=== PATIENT | female | born 1990 | race Caucasian/White ===

== ENCOUNTER 2019-08-21 14:33 | Emergency (ER) | payer SELFPAY ==
[2019-08-21] MEDS ORDERED: Sodium Chloride 0.9% 1,000 ML IV ONE (14:44)
[2019-08-21] MEDS ORDERED: Ondansetron 4 MG/2 ML SDV IVPUSH ONE (14:44)
[2019-08-21] MEDS ORDERED: Morphine 4 MG/ML Syringe IVPUSH ONE (14:44)
--- NOTE | 2019-08-21 14:50 | EDM.PDOC ---
ED HPI GENERAL MEDICAL PROBLEM - General Chief Complaint: Abdominal Pain Stated Complaint: ABDOMINAL PAIN/POSSIBLE APPENDIX Time Seen by Provider: 08/21/19 14:45 Source of Information: Reports: Patient History Limitations: Reports: No Limitations - History of Present Illness INITIAL COMMENTS - FREE TEXT/NARRATIVE: This 29-year-old female presents the emergency room with right lower quadrant pain that started last night. Patient states that yesterday she was seen at [facility] and had a diagnosis of cholecystitis. Patient states that this evening she started having right lower quadrant pain. Patient called her primary Care physician and was told to come here because patient will have CAT scan available for imaging. Patient denies any urinary symptoms, fever chills. Patient does states she is vomited 3 times. Patient does not believe she is she had a negative test last night and has had her tubes tied. Duration: Hour(s): (6), Getting Worse Location: Reports: Abdomen Quality: Reports: Ache Severity: Moderate (7 out of 10 pain) Worsens with: Reports: None Associated Symptoms: Reports: No Other Symptoms, Nausea/Vomiting right lower abdominal pain Pain Score (Numeric/FACES): 7 - Related Data Allergies Allergy/AdvReac Type Severity Reaction Status Date / Time No Known Allergies Allergy Verified 08/21/19 14:43 Home Meds: Home Meds buPROPion [Wellbutrin] 08/21/19 [History] Past Medical History HEENT History: Reports: Impaired Vision Cardiovascular History: Reports: Hypertension Other Gastrointestinal History: hx: Heartburn/GERD even when not 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, 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 - Past Surgical History Female Surgical History: Reports: Section Social & Family History - Family History Respiratory: Reports: Asthma Musculoskeletal: Reports: Arthritis Neurological: Reports: Dementia Psychiatric: Reports: ADHD, Depression Endocrine/Metabolic: Reports: Diabetes, Type I, Diabetes, type II Oncologic: Reports: Uterine ED ROS GENERAL - Review of Systems Review Of Systems: See Below Constitutional: Reports: No Symptoms HEENT: Reports: No Symptoms Respiratory: Reports: No Symptoms Cardiovascular: Reports: No Symptoms Endocrine: Reports: No Symptoms GI/Abdominal: Reports: Abdominal Pain, Nausea, Vomiting : Reports: No Symptoms Musculoskeletal: Reports: No Symptoms Skin: Reports: No Symptoms Neurological: Reports: No Symptoms Psychiatric: Reports: No Symptoms Hematologic/Lymphatic: Reports: No Symptoms Immunologic: Reports: No Symptoms ED EXAM, GI/ABD - Physical Exam Exam: See Below Exam Limited By: No Limitations General Appearance: Alert, WD/WN, Moderate Distress Eyes: Bilateral: Normal Appearance Ears: Normal External Exam, Normal Canal, Hearing Grossly Normal, Normal TMs Throat/Mouth: Normal Inspection, Normal Lips Head: Atraumatic, Normocephalic Neck: Normal Inspection, Supple, Non-Tender, Full Range of Motion Respiratory/Chest: No Respiratory Distress, Lungs Clear, Normal Breath Sounds, No Accessory Muscle Use, Chest Non-Tender Cardiovascular: Normal Peripheral Pulses, Regular Rate, Rhythm, No Edema, No Gallop, No JVD, No Murmur, No Rub GI/Abdominal Exam: Normal Bowel Sounds, No Distention, Abnormal Bowel Sounds Rectal (Female) Exam: Deferred Back Exam: Normal Inspection, Full Range of Motion Extremities: Normal Inspection, Normal Range of Motion Neurological: Alert, Oriented, CN II-XII Intact, Normal Cognition, Normal Gait, Normal Reflexes, No Motor/Sensory Deficits Psychiatric: Normal Affect, Normal Mood Skin Exam: Warm, Dry, Intact, Normal Color, No Rash Lymphatic: No Adenopathy Course - Vital Signs Text/Narrative:: 29-year-old female presents the emergency room right lower quadrant pain sent in by her primary care physician for possible appendicitis. Is on ultrasound a 10 x 7 x 13 cm large cystic structure coming out of the pelvis on the right side. I discussed the case with Dr. Patel patient is to call [facility] clinic tomorrow for urgent clinical appointment. Last Recorded V/S: Last Vital Signs Temp 97.9 F 08/21/19 14:40 Pulse 73 08/21/19 16:03 Resp 16 08/21/19 16:03 BP 129/66 08/21/19 16:03 Pulse Ox 98 08/21/19 16:03 - Orders/Labs/Meds Orders: Active Orders 24 hr Category Date Time Status CULTURE URINE [RM] Stat Lab 08/21/19 14:47 Received Labs: Laboratory Tests 08/21/19 08/21/19 08/21/19 Range/Units 14:46 14:46 14:47 WBC 13.29 H (4.0-11.0) K/uL RBC 4.83 (4.30-5.90) M/uL Hgb 13.2 (12.0-16.0) g/dL Hct 40.2 (36.0-46.0) % MCV 83.2 (80.0-98.0) fL MCH 27.3 (27.0-32.0) pg MCHC 32.8 (31.0-37.0) g/dL RDW Std Deviation 40.5 (28.0-62.0) fl RDW Coeff of Jasmin 13 (11.0-15.0) % Plt Count 402 H (150-400) K/uL MPV 9.50 (7.40-12.00) fL Neut % (Auto) 55.0 (48.0-80.0) % Lymph % (Auto) 35.4 (16.0-40.0) % [place] % (Auto) 7.8 (0.0-15.0) % Eos % (Auto) 1.6 (0.0-7.0) % Baso % (Auto) 0.2 (0.0-1.5) % Neut # (Auto) 7.3 H (1.4-5.7) K/uL Lymph # (Auto) 4.7 H (0.6-2.4) K/uL [place] # (Auto) 1.0 H (0.0-0.8) K/uL Eos # (Auto) 0.2 (0.0-0.7) K/uL Baso # (Auto) 0.0 (0.0-0.1) K/uL Nucleated RBC % 0.0 /100WBC Nucleated RBCs # 0 K/uL Sodium 138 (136-145) mmol/L Potassium 3.8 (3.5-5.1) mmol/L Chloride 100 (98-107) mmol/L Carbon Dioxide 27.9 (21.0-32.0) mmol/L BUN 15 (7.0-18.0) mg/dL Creatinine 0.7 (0.6-1.0) mg/dL Est Cr Clr Drug Dosing 112.01 mL/min Estimated GFR (MDRD) > 60.0 ml/min Glucose 79 (74-106) mg/dL Calcium 9.1 (8.5-10.1) mg/dL Total Bilirubin 0.5 (0.2-1.0) mg/dL AST 17 (15-37) IU/L ALT 29 (14-63) IU/L Alkaline Phosphatase 101 (46-116) U/L Total Protein 7.9 (6.4-8.2) g/dL Albumin 3.9 (3.4-5.0) g/dL Globulin 4.0 (2.6-4.0) g/dL Albumin/Globulin Ratio 1.0 (0.9-1.6) Urine Color Urine Appearance Urine pH (5.0-8.0) Ur Specific [place] (1.001-1.035) Urine Protein (NEGATIVE) mg/dL Urine Glucose (UA) (NEGATIVE) mg/dL Urine Ketones (NEGATIVE) mg/dL Urine Occult Blood (NEGATIVE) Urine Nitrite (NEGATIVE) Urine Bilirubin (NEGATIVE) Urine Urobilinogen (<2.0) EU/dL Ur Leukocyte Esterase (NEGATIVE) Urine RBC (0-2/HPF) Urine WBC (0-5/HPF) Ur Epithelial Cells (NONE-FEW) Urine Bacteria (NEGATIVE) Urine HCG, Qual NEGATIVE (NEGATIVE) 08/21/19 Range/Units 14:47 WBC (4.0-11.0) K/uL RBC (4.30-5.90) M/uL Hgb (12.0-16.0) g/dL Hct (36.0-46.0) % MCV (80.0-98.0) fL MCH (27.0-32.0) pg MCHC (31.0-37.0) g/dL RDW Std Deviation (28.0-62.0) fl RDW Coeff of Jasmin (11.0-15.0) % Plt Count (150-400) K/uL MPV (7.40-12.00) fL Neut % (Auto) (48.0-80.0) % Lymph % (Auto) (16.0-40.0) % [place] % (Auto) (0.0-15.0) % Eos % (Auto) (0.0-7.0) % Baso % (Auto) (0.0-1.5) % Neut # (Auto) (1.4-5.7) K/uL Lymph # (Auto) (0.6-2.4) K/uL [place] # (Auto) (0.0-0.8) K/uL Eos # (Auto) (0.0-0.7) K/uL Baso # (Auto) (0.0-0.1) K/uL Nucleated RBC % /100WBC Nucleated RBCs # K/uL Sodium (136-145) mmol/L Potassium (3.5-5.1) mmol/L Chloride (98-107) mmol/L Carbon Dioxide (21.0-32.0) mmol/L BUN (7.0-18.0) mg/dL Creatinine (0.6-1.0) mg/dL Est Cr Clr Drug Dosing mL/min Estimated GFR (MDRD) ml/min Glucose (74-106) mg/dL Calcium (8.5-10.1) mg/dL Total Bilirubin (0.2-1.0) mg/dL AST (15-37) IU/L ALT (14-63) IU/L Alkaline Phosphatase (46-116) U/L Total Protein (6.4-8.2) g/dL Albumin (3.4-5.0) g/dL Globulin (2.6-4.0) g/dL Albumin/Globulin Ratio (0.9-1.6) Urine Color YELLOW Urine Appearance CLEAR Urine pH 6.5 (5.0-8.0) Ur Specific [place] 1.010 (1.001-1.035) Urine Protein NEGATIVE (NEGATIVE) mg/dL Urine Glucose (UA) NEGATIVE (NEGATIVE) mg/dL Urine Ketones NEGATIVE (NEGATIVE) mg/dL Urine Occult Blood NEGATIVE (NEGATIVE) Urine Nitrite NEGATIVE (NEGATIVE) Urine Bilirubin NEGATIVE (NEGATIVE) Urine Urobilinogen 0.2 (<2.0) EU/dL Ur Leukocyte Esterase SMALL H (NEGATIVE) Urine RBC 1-2 (0-2/HPF) Urine WBC 2-3 (0-5/HPF) Ur Epithelial Cells FEW (NONE-FEW) Urine Bacteria FEW (NEGATIVE) Urine HCG, Qual (NEGATIVE) Meds: Medications Discontinued Medications Generic Name Dose Route Start Last Admin Trade Name Freq PRN Reason Stop Dose Admin Sodium Chloride 1,000 mls @ 1,000 mls/hr 08/21/19 14:44 08/21/19 14:56 Normal Saline IV 08/21/19 15:43 1,000 mls/hr .Bolus ONE Administration Iodixanol 100 ml 08/21/19 15:53 08/21/19 15:55 Visipaque IVPUSH 04/30/20 15:54 100 ml ONETIME STA Administration Morphine Sulfate 4 mg 08/21/19 14:44 08/21/19 14:56 Morphine IVPUSH 08/21/19 14:45 4 mg ONETIME ONE Administration Ondansetron HCl 4 mg 08/21/19 14:44 08/21/19 14:56 Zofran IVPUSH 08/21/19 14:45 4 mg ONETIME ONE Administration Departure - Departure Time of Disposition: 16:44 Disposition: Home, Self-Care 01 Clinical Impression: Ovarian cyst - Discharge Information Instructions: Ovarian Cyst, Pelvic Mass, Female Referrals: Clementina Connor DO [Primary Care Provider] - Forms: ED Department Discharge Additional Instructions: 1. Follow-up with [facility] clinic. Patient is to call tomorrow for appointment / Dr. Patel 2. Return for severe pain. Sepsis Event Note - Evaluation Sepsis Screening Result: No Definite Risk - Focused Exam Vital Signs: Vital Signs Temp Pulse Resp BP Pulse Ox 08/21/19 16:03 73 16 129/66 98 08/21/19 14:40 97.9 F 90 18 151/90 H 99 Date Exam was Performed: 08/21/19 Time Exam was Performed: 16:43 - My Orders Last 24 Hours: My Active Orders 08/21/19 14:47 CULTURE URINE [RM] Stat - Assessment/Plan Last 24 Hours: My Active Orders 08/21/19 14:47 CULTURE URINE [RM] Stat
[2019-08-21 15:20] LABS: BLOOD UREA NITROGEN,BUN 15 mg/dL (7.0-18.0); CARBON DIOXIDE,CO2 27.9 mmol/L (21.0-32.0); CHLORIDE,CL 100 mmol/L (98-107); GLUCOSE RANDOM 79 mg/dL (74-106); POTASSIUM,K 3.8 mmol/L (3.5-5.1); SODIUM,NA 138 mmol/L (136-145)
--- NOTE | 2019-08-21 16:28 | CT ---
CT abdomen and pelvis Technique: Multiple axial sections were obtained from above the dome of the diaphragm inferiorly through the pubic symphysis. Intravenous contrast was utilized. No oral contrast has been given. Findings: Appendix is seen and is normal in size. Single calcified gallstone is noted within the gallbladder. There appears to be edema within the gallbladder wall. Large fluid-filled mass arises out of the pelvis. This appears to be simple by Hounsfield unit measurements and measures 13.0 cm x 10.7 cm in size and is located slightly to the right of midline. Other findings: Visualized lung bases show nothing acute. Liver contains no focal abnormality. Spleen appears within normal limits. Adrenal glands show no nodule. Pancreas shows no discrete abnormality. Kidneys show symmetric contrast enhancement without hydronephrosis or mass. Aorta shows no aneurysm. No retroperitoneal adenopathy or mesenteric abnormalities are seen. No pelvic mass or adenopathy is seen. No free fluid or inflammatory change is appreciated. Bone window settings show nothing acute. Impression: 1. Single calcified gallstone within the gallbladder. Questionable edema within the gallbladder wall. If patient has right upper quadrant symptoms, recommend gallbladder ultrasound to further evaluate. 2. Large simple appearing cyst arising out of the pelvis which is to the right of midline measuring 10.7 x 13.0 cm. [employer] consult is recommended. 3. Normal sized appendix. 4. No additional abnormality is seen. Diagnostic code #3 This report was dictated in MDT
[2019-08-21 16:59] VITALS: BP 147/68; PULSE 78
== END 2019-08-21 16:55 | disposition home or self-care (01) ==
LOC: MW.ED 14:33
DX: N83.201 Unspecified ovarian cyst, right side (principal); I10 Essential (primary) hypertension
CPT/HCPCS: 36415; 74177; 80053; 81001; 81025; 85025; 87086; 96361; 96374; 96375; 99284; J2270; J2405; J7030; Q9967; 99283

== ENCOUNTER 2019-08-25 09:15 | Day surgery (SDC) | payer OTHER ==
[~2019-08-25 09:15] MED LIST: Lactated Ringers 1,000 ML IV SCH; Sodium Chloride 0.9% 10 ML SDV IV PRN; Sodium Chloride 0.9% 10 ML Syringe FLUSH PRN; Sodium Chloride 0.9% 2.5 ML Syringe FLUSH PRN
--- NOTE | 2019-08-25 09:32 | PCM.PREANE ---
Preanesthetic Assessment - Anesthesia/Transfusion/Family Hx Anesthesia History: Prior Anesthesia Without Reaction Other Type of Anesthesia Reaction Comment: Denies any problems in past, reports does get motion sickness Family History of Anesthesia Reaction: No Transfusion History: No Prior Transfusion(s) - Review of Systems General: No Symptoms Pulmonary: No Symptoms Cardiovascular: No Symptoms Gastrointestinal: Abdominal Pain Neurological: No Symptoms Other: Reports: None - Physical Assessment NPO Status Date: 08/24/19 Height: 5 ft 6 in Weight: 107.955 kg ASA Class: 2 Mental Status: Alert & Oriented x3 Airway Class: Mallampati = 2 Dentition: Reports: Normal Dentition ROM/Head Extension: Full Lungs: Clear to Auscultation, Normal Respiratory Effort Cardiovascular: Regular Rate, Regular Rhythm - Allergies Allergies/Adverse Reactions: Allergies Allergy/AdvReac Type Severity Reaction Status Date / Time No Known Allergies Allergy Verified 08/22/19 17:34 - Blood Blood Available: No - Anesthesia Plan Pre-Op Medication Ordered: None - Acknowledgements Anesthesia Type Planned: General Anesthesia Pt an Appropriate Candidate for the Planned Anesthesia: Yes Alternatives and Risks of Anesthesia Discussed w Pt/Guardian: Yes Pt/Guardian Understands and Agrees with Anesthesia Plan: Yes PreAnesthesia Questionnaire HEENT History: Reports: Other (See Below) Other HEENT History: wears glasses/contacts Cardiovascular History: Reports: Other (See Below) Other Cardiovascular History: hypertensive during Gastrointestinal History: Reports: Cholelithiasis, Colon Polyp, Irritable Bowel Syndrome, Other (See Below) Other Gastrointestinal History: occasional heartburn, just found out she has gallstones 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: Polycystic Ovaries, Other OB/BYN History: G 3 Para 2, 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 Neurological History: Reports: Other (See Below) Other Neuro History: hx of motion sickness Psychiatric History: Reports: Anxiety, Depression Endocrine/Metabolic History: Reports: Obesity/BMI 30+ - Infectious Disease History Infectious Disease History: Reports: Chicken Pox - Past Surgical History Head Surgeries/Procedures: Reports: None HEENT Surgical History: Reports: Adenoidectomy, Tonsillectomy GI Surgical History: Reports: Colonoscopy Female Surgical History: Reports: Section, Tubal Ligation Other Female Surgeries/Procedures: x3 - SUBSTANCE USE Smoking Status *Q: Current Some Day Smoker Tobacco Use Within Last Twelve Months: Cigarettes Recreational Drug Use History: No - HOME MEDS Home Medications: Home Meds buPROPion [Wellbutrin] 150 mg PO QAM 08/21/19 [History] Dicyclomine [Bentyl] 20 mg PO QID 08/22/19 [History] - CURRENT (IN HOUSE) MEDS Current Meds: Current Medications Lactated Ringer's (Ringers, Lactated) 1,000 mls @ 100 mls/hr IV ASDIRECTED MAURILIO Last Admin: 08/25/19 08:07 Dose: 100 mls/hr Sodium Chloride (Saline Flush) 10 ml FLUSH ASDIRECTED PRN PRN Reason: Keep Vein Open Sodium Chloride (Saline Flush) 2.5 ml FLUSH ASDIRECTED PRN PRN Reason: Keep Vein Open Sodium Chloride (Normal Saline) 10 ml IV ASDIRECTED PRN PRN Reason: IV Use
[2019-08-25] MEDS ORDERED: Ondansetron 4 MG/2 ML SDV ONE (09:48)
[2019-08-25] MEDS ORDERED: fentaNYL 100 MCG/2 ML SDV ONE (09:48)
[2019-08-25] MEDS ORDERED: Midazolam 1 MG/ML 2 ML SDV ONE (09:48)
[2019-08-25] MEDS ORDERED: Propofol 200 MG/20 ML SDV ONE (09:48)
[2019-08-25] MEDS ORDERED: Rocuronium 100 MG/10 ML Syringe ONE ×3 (09:49→11:45)
[2019-08-25] MEDS ORDERED: Glycopyrrolate 0.2 MG/ML SDV ONE (09:49)
[2019-08-25] MEDS ORDERED: Sugammadex Sodium 200 MG/2 ML VIAL ONE (09:51)
[2019-08-25] MEDS ORDERED: Bupivacaine 0.25% 10 ML SDV ONE (10:19)
[2019-08-25 10:21] LABS: BLOOD UREA NITROGEN,BUN 9 mg/dL (7.0-18.0); CARBON DIOXIDE,CO2 22.9 mmol/L (21.0-32.0); CHLORIDE,CL 104 mmol/L (98-107); GLUCOSE RANDOM 89 mg/dL (74-106); SODIUM,NA 139 mmol/L (136-145)
[2019-08-25] MEDS ORDERED: Morphine 10 MG/ML Syringe ONE ×2 (10:31→12:41)
[2019-08-25] MEDS ORDERED: Morphine 4 MG/ML Syringe IVPUSH ONE (11:29)
[2019-08-25] MEDS ORDERED: Dexamethasone 4 MG/ML 5 ML MDV ONE (12:07)
[2019-08-25] MEDS ORDERED: Ketorolac 30 MG/ML SDV ONE (12:07)
[2019-08-25] MEDS ORDERED: Ketorolac 30 MG/ML SDV IVPUSH ONE (13:33)
[2019-08-25] MEDS ORDERED: Acetaminophen/oxyCODONE 325-5 MG Tab PO PRN ×2 (13:33)
[2019-08-25] MEDS ORDERED: Ketorolac 30 MG/ML SDV IVPUSH PRN (13:33)
[2019-08-25] MEDS ORDERED: Ondansetron 4 MG/2 ML SDV IVPUSH PRN (13:33)
[2019-08-25] MEDS ORDERED: Morphine 4 MG/ML Syringe IVPUSH PRN (13:33)
[2019-08-25] MEDS ORDERED: Promethazine 25 MG/ML SDV IM PRN (13:33)
--- NOTE | 2019-08-25 13:40 | PCM.OPNOTE ---
- General Post-Op/Procedure Note Date of Surgery/Procedure: 08/25/19 Operative Procedure(s): Hysteroscopy D & C. Laparoscopic right salphingoopherectomy Findings: Normal sized anterverted uterus Normal uterine cavity with proliferative endometrium Laparaoscopy showed omental adhesion to the anterior abdominal wall close to the umbilicus 12 cm right paratubal cyst on the fimbrae - simple Right tube in 2 sections supports hx of btl Pelvis with no significant adhesions from c-sections Right ovaries appear enlarged and polycystic Normal left ovary Pre Op Diagnosis: Right ovarian cyst. Abnormal uterine bleeding Post-Op Diagnosis: Right paratubal simple cyst Anesthesia Technique: General ET Tube Primary Surgeon: Alma Reyes Secondary Surgeon: Kobe Gomez Anesthesia Provider: Román Vincent Pathology: Right ovary Right tube with cyst wall Endometrial currettings Fluid Replacement, Intraop: 1,200 Output, Urine Amount: 150 EBL in mLs: 10 Complications: None Condition: Good Free Text/Narrative:: Intake & Output 08/24/19 08/25/19 08/25/19 22:59 06:59 14:59 Output Total 100 Balance -100
[2019-08-25] MEDS ORDERED: Meperidine PF 25 MG/ML Syringe IVPUSH ONE (13:48)
--- NOTE | 2019-08-25 13:48 | PCM.POSTAN ---
POST ANESTHESIA ASSESSMENT - MENTAL STATUS Mental Status: Alert - VITAL SIGNS Vital Signs: Last Vital Signs Temp 36.4 C 08/25/19 13:22 Pulse 76 08/25/19 13:37 Resp 13 08/25/19 13:37 BP 125/61 08/25/19 13:37 Pulse Ox 99 08/25/19 13:37 - RESPIRATORY Respiratory Status: Respiratory Rate WNL - CARDIOVASCULAR CV Status: Pulse Rate WNL - GASTROINTESTINAL GI Status: No Symptoms - PAIN Pain Score: 2 (ache, but doing well) - POST OP HYDRATION Hydration Status: Adequate & Stable - OBSERVATIONS Free Text/Narrative:: Doing well. Some shivering. Will rx with demerol 12.5mg.
[2019-08-25] MEDS ORDERED: Meperidine PF 25 MG/ML Syringe ONE (13:50)
[2019-08-25] MEDS ORDERED: Haloperidol Lactate 5 MG/ML SDV IM ONE (14:33)
[2019-08-25] MEDS ORDERED: oxyCODONE 5 MG Tab PO ONE (14:33)
[2019-08-25] MEDS ORDERED: Haloperidol Lactate 5 MG/ML SDV ONE (14:37)
[2019-08-25] MEDS ORDERED: HYDROmorphone 2 MG/ML Syringe IVPUSH ONE (14:52)
[2019-08-25 15:40] VITALS: BP 116/60; PULSE 56
--- NOTE | 2019-08-25 16:24 | PCM48HPAN ---
Post Anesthesia Note - EVALUATION WITHIN 48HRS OF ANESTHETIC Vital Signs in Normal Range: Yes Patient Participated in Evaluation: Yes Respiratory Function Stable: Yes Airway Patent: Yes Cardiovascular Function Stable: Yes Hydration Status Stable: Yes Pain Control Satisfactory: Yes (Some tenderness. Tolerating well.) Nausea and Vomiting Control Satisfactory: Yes (Rx'd agreessively. Doing well at present.) Mental Status Recovered: Yes Vital Signs: Last Vital Signs Temp 36.7 C 08/25/19 14:15 Pulse 56 L 08/25/19 15:30 Resp 14 08/25/19 15:30 BP 116/60 08/25/19 15:00 Pulse Ox 100 08/25/19 15:30 - COMMENTS/OBSERVATIONS Free Text/Narrative:: Doing well. Ready for discharge.
--- NOTE | 2019-08-25 22:16 | OR ---
DATE OF PROCEDURE: 08/25/2019 SURGEON: SIMI Gomez MD. PREOPERATIVE DIAGNOSES: A 29-year-old para 3, with right ovarian cyst and abnormal uterine bleeding. POSTOPERATIVE DIAGNOSES: Right paratubal cyst and abnormal uterine bleeding. PROCEDURE: Laparoscopic Right salpingo-oophorectomy D and C hysteroscopy. ESTIMATED BLOOD LOSS: 10 mL. IV FLUIDS: 1200. Fluid deficit for the hysteroscopy is 225 mL normal saline. ANESTHESIA: General. PATHOLOGY: Endometrium, right tube with cyst and ovary. FINDINGS: Hysteroscopy showed - Normal endometrial cavity with proliferative endometrium Laparoscopy showed a large 13cm simple cyst noted to be more paratubal in origin close to the fimbrae end. slight extension of cyst to upper border of ovary. Cyst extended to the left iliac fossa Right ovary appeared slightly large with polycystic surface. Normal appearing left ovary BRIEF HISTORY: The patient is a 29-year-old para 3, who was sent from the ER as a result of right pelvic pain and CT finding of 13 cm right ovarian cyst. Ultrasound also confirmed the right ovarian cyst. The patient was counseled for cystectomy; however, patient said she has had recurrent right pelvic-sided pain and a cyst in her ovary for many years and she declined a cystectomy and opted for a right salpingo- oophorectomy. She was explained the risks, benefits, and alternatives and she decided to proceed. Patient also had abnormal uterine bleeding. She was consent for Hysteroscopy and laparoscopic Right salphingoopherectomy DESCRIPTION OF PROCEDURE: The patient was taken to the operating room where general anesthesia was performed without difficulty. She was prepared, draped and positioned in the dorsal lithotomy position with Kamaljit stirrups. The cervix was exposed with a speculum. With gradual dilation, the cervix could accommodate the MyoSure hysteroscope which was placed into the uterus without any difficulty. The uterus and the endometrial cavity seemed proliferative normal, with a little bit of more proliferative endometrium in the posterior aspect, which was then shaved down with the MyoSure hysteroscope. After this, the MyoSure hysteroscope was withdrawn and the uterine manipulator was placed without any difficulty. Then, attention was placed to the abdomen. A 5 mm incision was made at the midclavicular line, 2 cm beneath the rib cage at the Angel's point. Direct entry was done without any difficulty. Entry into the abdomen was confirmed by low abdominal pressure. The abdomen was insufflated with CO2 to a pressure of 15 mmHg. Slight omental adhesion was noted at the umbilicus . Then, A 5mm right lower quadrant incision was made 2 fingerbreadths superior and medial to the anterior superior iliac spine. Entry was confirmed via direct visualization. Again, another port was made at the left lower quadrant 2 fingerbreadths medial and superior to the anterior iliac spine. The adhesion was then inspected. It was noted to be free of bowel. It was then sequentially cut and coagulated down. Then the umbilicus was entered with a 10 mm trocar. The cyst was aspirated with the aid of a laparoscopic scissor making and incision and a suction used to aspirate the fluid. After decompression of the cyst,the Ligasure device was used to the sequentially cut and coagulate the tube from the cornua end to the Infundibulopelvic ligament, The specimen was placed in the EndoCatch bag. The incision was inspected, noted to be hemostatic. Next, irrigation was done and the trocars were then removed under direct visualization. The trocars where removed. The fascia in the umbilical region was closed with 0 Vicryl. Then the skin was closed with Monocryl. The laparoscopic incision was then closed with Monocryl 3 -0. The manipulator was removed from the uterus. The patient tolerated the procedure well. All instrument and pad counts were correct x2. ANTONY / TAE /[id number] GEORGE
== END 2019-08-25 16:30 | disposition home or self-care (01) ==
LOC: MW.SDS 09:15
PROVIDERS: ATTEND Obstetrics & Gynecology
DX: N83.8 Other noninflammatory disorders of ovary, fallopian tube and broad ligament (principal); Q50.5 Embryonic cyst of broad ligament; N83.01 Follicular cyst of right ovary; K66.0 Peritoneal adhesions (postprocedural) (postinfection); F32.9 Major depressive disorder, single episode, unspecified; F17.210 Nicotine dependence, cigarettes, uncomplicated; E66.9 Obesity, unspecified; F41.9 Anxiety disorder, unspecified; Z98.51 Tubal ligation status; Z68.38 Body mass index [BMI] 38.0-38.9, adult
CPT/HCPCS: 36415; 58558; 58661; 80048; 84703; 85027; 86850; 86900; 86901; A9270; J0131; J1100; J1170; J1630; J1885; J2001; J2175; J2250; J2270; J2405; J2704; J3010; J3490; J7120; 00840; 88104; 88305

== ENCOUNTER 2019-08-29 13:32 | Observation (INO) | payer OTHER ==
[2019-08-29] MEDS ORDERED: Ondansetron 4 MG/2 ML SDV IVPUSH ONE (13:44)
[2019-08-29] MEDS ORDERED: Ketorolac 30 MG/ML SDV IVPUSH ONE ×2 (13:44→15:17)
[2019-08-29] MEDS ORDERED: Sodium Chloride 0.9% 2.5 ML Syringe FLUSH PRN ×2 (13:44)
[2019-08-29] MEDS ORDERED: Sodium Chloride 0.9% 1,000 ML IV ONE (13:44)
[2019-08-29] MEDS ORDERED: Sodium Chloride 0.9% 10 ML Syringe FLUSH PRN (13:44)
[2019-08-29] MEDS ORDERED: Morphine 4 MG/ML Syringe IVPUSH ONE ×2 (13:51→15:19)
[2019-08-29 14:34] LABS: BLOOD UREA NITROGEN,BUN 10 mg/dL (7.0-18.0); CHLORIDE,CL 102 mmol/L (98-107); GLUCOSE RANDOM 111 mg/dL (74-106); LIPASE 100 U/L (73-393); POTASSIUM,K 3.9 mmol/L (3.5-5.1); SODIUM,NA 139 mmol/L (136-145)
--- NOTE | 2019-08-29 14:43 | US ---
Limited abdominal ultrasound: Multiple real-time images of the upper right abdomen were obtained. Comparison: Previous CT abdomen and pelvis exam of 08/21/19. Findings: Liver shows no focal parenchymal abnormality. Multiple small mobile gallstones are seen. No gallbladder wall thickening or biliary duct dilatation is seen. Visualized portions of the pancreas shows no discrete abnormality. Right kidney shows no hydronephrosis or mass. Right kidney has a length of 11.9 cm. Visualized aorta shows no aneurysm. Impression: 1. Small layering gallstones with no gallbladder wall thickening or biliary duct dilatation. 2. Other portions of the upper right abdominal ultrasound are unremarkable. Diagnostic code #3 This report was dictated in MDT
--- NOTE | 2019-08-29 16:41 | EDM.PDOC ---
ED HPI GENERAL MEDICAL PROBLEM - General Chief Complaint: Abdominal Pain Stated Complaint: GALLBLADDER Time Seen by Provider: 08/29/19 13:38 - History of Present Illness INITIAL COMMENTS - FREE TEXT/NARRATIVE: History of present illness: [Several days she has been seen before for gallbladder issues and also for ovarian cyst. On Sunday she had surgery here and had a laparoscopy with an ovarian cyst removed. Ring in her right upper quadrant it is unrelenting and will stop this time she had some nausea and vomiting earlier none in the ED no fever no chills she is passing gas movement makes it worse being still makes it better] Review of systems: As per history of present illness and below otherwise all systems reviewed and negative. Past medical history: As per history of present illness and as reviewed below otherwise noncontributory. Surgical history: As per history of present illness and as reviewed below otherwise noncontributory. Social history: No reported history of drug or alcohol abuse. Family history: As per history of present illness and as reviewed below otherwise noncontributory. Physical exam: HEENT: Atraumatic, normocephalic, pupils reactive, negative for conjunctival pallor or scleral icterus, mucous membranes moist, throat clear, neck supple, nontender, trachea midline. Lungs: Clear to auscultation, breath sounds equal bilaterally, chest nontender. Heart: S1S2, regular, negative for clicks, rubs, or JVD. Abdomen: Soft, nondistended, right upper quadrant epigastric tenderness with positive Mckinney sign. Negative for masses or hepatosplenomegaly. Negative for costovertebral tenderness. Surgical wounds are healing well and not infected. Pelvis: Stable nontender. Genitourinary: Deferred. Rectal: Deferred. Extremities: Atraumatic, negative for cords or calf pain. Neurovascular unremarkable. Neuro: Awake, alert, oriented. Cranial nerves II through XII unremarkable. Cerebellum unremarkable. Motor and sensory unremarkable throughout. Exam nonfocal. Diagnostics: [] Therapeutics: [] Impression: [] Plan: Labs pain medication right upper quadrant ultrasound will be obtained and the patient will be reassessed [] Definitive disposition and diagnosis as appropriate pending reevaluation and review of above. Abdomen Pain Score (Numeric/FACES): 10 - Related Data Allergies Allergy/AdvReac Type Severity Reaction Status Date / Time No Known Allergies Allergy Verified 08/29/19 13:48 Home Meds: Home Meds buPROPion [Wellbutrin] 150 mg PO QAM 08/21/19 [History] Past Medical History HEENT History: Reports: Other (See Below) Other HEENT History: wears glasses/contacts Cardiovascular History: Reports: Other (See Below) Other Cardiovascular History: hypertensive during Gastrointestinal History: Reports: Cholelithiasis, Colon Polyp, Irritable Bowel Syndrome, Other (See Below) Other Gastrointestinal History: occasional heartburn, just found out she has gallstones RESEARCH TECHNICIAN History: Reports: Polycystic Ovaries, Other RESEARCH TECHNICIAN History: 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 Neurological History: Reports: Other (See Below) Other Neuro History: hx of motion sickness Psychiatric History: Reports: Anxiety, Depression Endocrine/Metabolic History: Reports: Obesity/BMI 30+ - Infectious Disease History Infectious Disease History: Reports: Chicken Pox - Past Surgical History Head Surgeries/Procedures: Reports: None HEENT Surgical History: Reports: Adenoidectomy, Tonsillectomy GI Surgical History: Reports: Colonoscopy Female Surgical History: Reports: Section, Tubal Ligation Other Female Surgeries/Procedures: x3 Social & Family History - Family History Family Medical History: Noncontributory Respiratory: Reports: Asthma Musculoskeletal: Reports: Arthritis Neurological: Reports: Dementia Psychiatric: Reports: ADHD, Depression Endocrine/Metabolic: Reports: Diabetes, Type I, Diabetes, type II Oncologic: Reports: Uterine - Tobacco Use Smoking Status *Q: Current Some Day Smoker Years of Tobacco use: 7 Packs/Tins Daily: 0 - Recreational Drug Use Recreational Drug Use: No ED ROS GENERAL - Review of Systems Review Of Systems: See Below ED EXAM, GENERAL - Physical Exam Exam: See Below Course - Vital Signs Text/Narrative:: At 3:30 PM I discussed the case with the patient's forestry support specialist who did her surgery on Sunday she recommends getting a CT of the abdomen and pelvis and consulting general surgery. CT abdomen pelvis has an absence of remarkable surgical findings. Per radiology At 5 PM I discussed the case with Dr. Flores general surgery he will consult on the patient [id number] Dr Flores saw3 the patient in the ED and will admit her to obs Last Recorded V/S: Last Vital Signs Temp 35.9 C L 08/29/19 17:15 Pulse 54 L 08/29/19 17:15 Resp 17 08/29/19 17:15 BP 115/60 08/29/19 17:15 Pulse Ox 98 08/29/19 17:15 - Orders/Labs/Meds Orders: Active Orders 24 hr Category Date Time Status Sodium Chloride 0.9% [Saline Flush] Med 08/29/19 13:44 Active 10 ml FLUSH ASDIRECTED PRN Sodium Chloride 0.9% [Saline Flush] Med 08/29/19 13:44 Active 2.5 ml FLUSH ASDIRECTED PRN Sodium Chloride 0.9% [Saline Flush] Med 08/29/19 13:44 Active 2.5 ml FLUSH ASDIRECTED PRN Saline Lock Insert [OM.PC] Stat Oth 08/29/19 13:44 Ordered Medication Orders Sodium Chloride (Saline Flush) 2.5 ml FLUSH ASDIRECTED PRN PRN Reason: Keep Vein Open Last Admin: 08/29/19 15:38 Dose: 2.5 ml Sodium Chloride (Saline Flush) 10 ml FLUSH ASDIRECTED PRN PRN Reason: Keep Vein Open Last Admin: 08/29/19 15:38 Dose: 10 ml Sodium Chloride (Saline Flush) 2.5 ml FLUSH ASDIRECTED PRN PRN Reason: Keep Vein Open Last Admin: 08/29/19 15:38 Dose: 2.5 ml Labs: Laboratory Tests 08/29/19 08/29/19 08/29/19 Range/Units 13:55 13:55 14:45 WBC 13.23 H (4.0-11.0) K/uL RBC 4.57 (4.30-5.90) M/uL Hgb 12.3 (12.0-16.0) g/dL Hct 38.0 (36.0-46.0) % MCV 83.2 (80.0-98.0) fL MCH 26.9 L (27.0-32.0) pg MCHC 32.4 (31.0-37.0) g/dL RDW Std Deviation 40.8 (28.0-62.0) fl RDW Coeff of Jasmin 14 (11.0-15.0) % Plt Count 447 H (150-400) K/uL MPV 9.50 (7.40-12.00) fL Neut % (Auto) 78.1 (48.0-80.0) % Lymph % (Auto) 16.1 (16.0-40.0) % [place] % (Auto) 4.3 (0.0-15.0) % Eos % (Auto) 1.3 (0.0-7.0) % Baso % (Auto) 0.2 (0.0-1.5) % Neut # (Auto) 10.3 H (1.4-5.7) K/uL Lymph # (Auto) 2.1 (0.6-2.4) K/uL [place] # (Auto) 0.6 (0.0-0.8) K/uL Eos # (Auto) 0.2 (0.0-0.7) K/uL Baso # (Auto) 0.0 (0.0-0.1) K/uL Nucleated RBC % 0.0 /100WBC Nucleated RBCs # 0 K/uL Sodium 139 (136-145) mmol/L Potassium 3.9 (3.5-5.1) mmol/L Chloride 102 (98-107) mmol/L Carbon Dioxide 27.0 (21.0-32.0) mmol/L BUN 10 (7.0-18.0) mg/dL Creatinine 0.8 (0.6-1.0) mg/dL Est Cr Clr Drug Dosing 98.01 mL/min Estimated GFR (MDRD) > 60.0 ml/min Glucose 111 H (74-106) mg/dL Calcium 9.1 (8.5-10.1) mg/dL Total Bilirubin 0.4 (0.2-1.0) mg/dL AST 20 (15-37) IU/L ALT 35 (14-63) IU/L Alkaline Phosphatase 92 (46-116) U/L Total Protein 7.7 (6.4-8.2) g/dL Albumin 3.9 (3.4-5.0) g/dL Globulin 3.8 (2.6-4.0) g/dL Albumin/Globulin Ratio 1.0 (0.9-1.6) Lipase 100 (73-393) U/L Urine Color Urine Appearance Urine pH (5.0-8.0) Ur Specific [place] (1.001-1.035) Urine Protein (NEGATIVE) mg/dL Urine Glucose (UA) (NEGATIVE) mg/dL Urine Ketones (NEGATIVE) mg/dL Urine Occult Blood (NEGATIVE) Urine Nitrite (NEGATIVE) Urine Bilirubin (NEGATIVE) Urine Urobilinogen (<2.0) EU/dL Ur Leukocyte Esterase (NEGATIVE) Urine RBC (0-2/HPF) Urine WBC (0-5/HPF) Ur Epithelial Cells (NONE-FEW) Urine Bacteria (NEGATIVE) Urine HCG, Qual NEGATIVE (NEGATIVE) 08/29/19 Range/Units 14:45 WBC (4.0-11.0) K/uL RBC (4.30-5.90) M/uL Hgb (12.0-16.0) g/dL Hct (36.0-46.0) % MCV (80.0-98.0) fL MCH (27.0-32.0) pg MCHC (31.0-37.0) g/dL RDW Std Deviation (28.0-62.0) fl RDW Coeff of Jasmin (11.0-15.0) % Plt Count (150-400) K/uL MPV (7.40-12.00) fL Neut % (Auto) (48.0-80.0) % Lymph % (Auto) (16.0-40.0) % [place] % (Auto) (0.0-15.0) % Eos % (Auto) (0.0-7.0) % Baso % (Auto) (0.0-1.5) % Neut # (Auto) (1.4-5.7) K/uL Lymph # (Auto) (0.6-2.4) K/uL [place] # (Auto) (0.0-0.8) K/uL Eos # (Auto) (0.0-0.7) K/uL Baso # (Auto) (0.0-0.1) K/uL Nucleated RBC % /100WBC Nucleated RBCs # K/uL Sodium (136-145) mmol/L Potassium (3.5-5.1) mmol/L Chloride (98-107) mmol/L Carbon Dioxide (21.0-32.0) mmol/L BUN (7.0-18.0) mg/dL Creatinine (0.6-1.0) mg/dL Est Cr Clr Drug Dosing mL/min Estimated GFR (MDRD) ml/min Glucose (74-106) mg/dL Calcium (8.5-10.1) mg/dL Total Bilirubin (0.2-1.0) mg/dL AST (15-37) IU/L ALT (14-63) IU/L Alkaline Phosphatase (46-116) U/L Total Protein (6.4-8.2) g/dL Albumin (3.4-5.0) g/dL Globulin (2.6-4.0) g/dL Albumin/Globulin Ratio (0.9-1.6) Lipase (73-393) U/L Urine Color YELLOW Urine Appearance CLEAR Urine pH 6.5 (5.0-8.0) Ur Specific [place] 1.025 (1.001-1.035) Urine Protein NEGATIVE (NEGATIVE) mg/dL Urine Glucose (UA) NEGATIVE (NEGATIVE) mg/dL Urine Ketones NEGATIVE (NEGATIVE) mg/dL Urine Occult Blood LARGE H (NEGATIVE) Urine Nitrite NEGATIVE (NEGATIVE) Urine Bilirubin NEGATIVE (NEGATIVE) Urine Urobilinogen 0.2 (<2.0) EU/dL Ur Leukocyte Esterase NEGATIVE (NEGATIVE) Urine RBC 2-5 (0-2/HPF) Urine WBC 0-2 (0-5/HPF) Ur Epithelial Cells OCCASIONAL (NONE-FEW) Urine Bacteria RARE (NEGATIVE) Urine HCG, Qual (NEGATIVE) Meds: Medications Generic Name Dose Route Start Last Admin Trade Name Freq PRN Reason Stop Dose Admin Sodium Chloride 2.5 ml 08/29/19 13:44 08/29/19 15:38 Saline Flush FLUSH 2.5 ml ASDIRECTED PRN Administration Keep Vein Open Sodium Chloride 10 ml 08/29/19 13:44 08/29/19 15:38 Saline Flush FLUSH 10 ml ASDIRECTED PRN Administration Keep Vein Open Sodium Chloride 2.5 ml 08/29/19 13:44 08/29/19 15:38 Saline Flush FLUSH 2.5 ml ASDIRECTED PRN Administration Keep Vein Open Discontinued Medications Generic Name Dose Route Start Last Admin Trade Name Freq PRN Reason Stop Dose Admin Sodium Chloride 1,000 mls @ 999 mls/hr 08/29/19 13:44 08/29/19 13:57 Normal Saline IV 08/29/19 14:44 999 mls/hr BOLUS ONE Administration Ketorolac Tromethamine 30 mg 08/29/19 13:44 08/29/19 13:53 Toradol IVPUSH 08/29/19 13:45 Not Given ONETIME ONE Ketorolac Tromethamine 30 mg 08/29/19 15:17 08/29/19 15:42 Toradol IVPUSH 08/29/19 15:18 Not Given ONETIME ONE Morphine Sulfate 4 mg 08/29/19 13:51 08/29/19 13:57 Morphine IVPUSH 08/29/19 13:52 4 mg ONETIME ONE Administration Morphine Sulfate 4 mg 08/29/19 15:19 08/29/19 15:27 Morphine IVPUSH 08/29/19 15:20 4 mg ONETIME ONE Administration Ondansetron HCl 4 mg 08/29/19 13:44 08/29/19 13:57 Zofran IVPUSH 08/29/19 13:45 4 mg ONETIME ONE Administration Departure - Departure Time of Disposition: 17:43 Disposition: Refer to Observation Condition: Good Clinical Impression: Abdominal pain Qualifiers: Abdominal location: generalized Qualified Code(s): R10.84 - Generalized abdominal pain - Discharge Information *PRESCRIPTION DRUG MONITORING PROGRAM REVIEWED*: Not Applicable *COPY OF PRESCRIPTION DRUG MONITORING REPORT IN PATIENT NIURKA: Not Applicable Referrals: Clementina Connor DO [Primary Care Provider] - Forms: ED Department Discharge Sepsis Event Note - Evaluation Sepsis Screening Result: No Definite Risk - Focused Exam Vital Signs: Vital Signs Temp Pulse Resp BP Pulse Ox 08/29/19 17:15 35.9 C L 54 L 17 115/60 98 08/29/19 15:32 35.8 C L 47 L 18 140/79 98 08/29/19 13:46 35.6 C L 61 16 153/103 H 99 Date Exam was Performed: 08/29/19 Time Exam was Performed: 17:42 - My Orders Last 24 Hours: My Active Orders 08/29/19 13:44 Sodium Chloride 0.9% [Saline Flush] 10 ml FLUSH ASDIRECTED PRN Sodium Chloride 0.9% [Saline Flush] 2.5 ml FLUSH ASDIRECTED PRN Sodium Chloride 0.9% [Saline Flush] 2.5 ml FLUSH ASDIRECTED PRN Saline Lock Insert [OM.PC] Stat - Assessment/Plan Last 24 Hours: My Active Orders 08/29/19 13:44 Sodium Chloride 0.9% [Saline Flush] 10 ml FLUSH ASDIRECTED PRN Sodium Chloride 0.9% [Saline Flush] 2.5 ml FLUSH ASDIRECTED PRN Sodium Chloride 0.9% [Saline Flush] 2.5 ml FLUSH ASDIRECTED PRN Saline Lock Insert [OM.PC] Stat
--- NOTE | 2019-08-29 16:53 | CT ---
CT abdomen and pelvis Technique: Multiple axial sections were obtained from above the dome of the diaphragm inferiorly through the pubic symphysis. Intravenous contrast was utilized. No oral contrast has been given. Comparison: Previous CT abdomen and pelvis study of 08/21/19. Findings: Visualized lung bases show nothing acute. Liver shows no focal parenchymal abnormality. Spleen appears within normal limits. Calcifications are seen within the gallbladder compatible with calcified gallstone. Adrenal glands show no nodule. Kidneys show symmetric contrast enhancement without hydronephrosis or mass. Pancreas appears within normal limits. Aorta shows no aneurysm. No retroperitoneal adenopathy or mesenteric abnormalities are seen. No pelvic mass or adenopathy is seen. Previous pelvic cyst is no longer present. Minimal increased density is seen next to the umbilicus believed to represent change from previous laparoscopic surgery. Appendix is seen and appears normal in size. No free fluid or inflammatory change is seen. Bone window settings were reviewed which show no acute osseous finding. Impression: 1. Previous cyst that was noted within the pelvis is no longer present compatible with interval removal. 2. Hazy density next to the umbilicus most likely representing previous laparoscopic surgery. 3. 2 small calcified gallstones within the gallbladder. 4. Nothing acute is otherwise seen on CT study of the abdomen and pelvis. Diagnostic code #2 This report was dictated in MDT
[2019-08-29] MEDS ORDERED: Morphine 4 MG/ML Syringe IVPUSH PRN ×2 (18:02→21:11)
[2019-08-29] MEDS ORDERED: Ondansetron 4 MG/2 ML SDV IVPUSH PRN (18:03)
--- NOTE | 2019-08-29 18:17 | PCM.SN.2 ---
- Free Text/Narrative Note: pt seen, chart reviewed, cholecystitis, admitted for pain management and iv abx ; reassess in the morning; [id number]
[2019-08-29] MEDS: Levofloxacin/Dextrose 5%-Water 750 MG in Premix Bag 1 BAG IV SCH (18:20)
[2019-08-29] MEDS ORDERED: Iopamidol 755 Mg/ML 100 ML Bottle IVPUSH STA (18:21)
[2019-08-29] MEDS ORDERED: Ondansetron 4 MG/2 ML SDV ONE (18:49)
[2019-08-29] MEDS: Lactated Ringers 1,000 ML IV SCH (20:10)
[2019-08-29] MEDS: Ketorolac 30 MG/ML SDV IVPUSH PRN (21:22)
[2019-08-30] MEDS: Lactated Ringers 1,000 ML IV SCH ×2 (04:17→17:03)
[2019-08-30] MEDS: Ketorolac 30 MG/ML SDV IVPUSH PRN ×3 (05:44→22:25)
[2019-08-30 07:16] LABS: BLOOD UREA NITROGEN,BUN 7 mg/dL (7.0-18.0); CARBON DIOXIDE,CO2 25.7 mmol/L (21.0-32.0); CHLORIDE,CL 104 mmol/L (98-107); GLUCOSE RANDOM 90 mg/dL (74-106); LIPASE 324 U/L (73-393); POTASSIUM,K 3.8 mmol/L (3.5-5.1); SODIUM,NA 139 mmol/L (136-145)
[2019-08-30] MEDS: Pantoprazole 40 MG in Sodium Chloride 0.9% 10 ML IV SCH (08:18)
--- NOTE | 2019-08-30 09:01 | PCM.SN.2 ---
- Free Text/Narrative Note: Pain meds every 4 hours, no improvement; wbc remain elevated w iv abx; long dw pt re bleedig/infection/damage to nearby organs and increase in wound infection risks as she is 5 days from her prior surgery, pt voiced understanding, proceed w acute cholecystitis surgery;
[2019-08-30] MEDS ORDERED: Lactated Ringers 1,000 ML IV SCH ×2 (09:15→13:15)
[2019-08-30] MEDS ORDERED: Bupivacaine 0.25%/EPINEPHrine 1:200,000 10 ML SDV ONE ×3 (09:26→12:41)
[2019-08-30] MEDS ORDERED: Octyl 2-Cyanoacrylate 1 Tube ONE (09:27)
[2019-08-30] MEDS ORDERED: Scopolamine 1.5 MG Transdermal Patch ONE (09:31)
[2019-08-30] MEDS ORDERED: Midazolam 1 MG/ML 2 ML SDV ONE (09:46)
[2019-08-30] MEDS ORDERED: fentaNYL 250 MCG/5 ML SDV ONE (09:46)
[2019-08-30] MEDS ORDERED: Propofol 200 MG/20 ML SDV ONE ×2 (09:46→11:55)
[2019-08-30] MEDS ORDERED: Lidocaine 2% 5 ML SDV ONE (09:48)
[2019-08-30] MEDS ORDERED: Rocuronium 100 MG/10 ML Syringe ONE (09:48)
[2019-08-30] MEDS ORDERED: Dexamethasone 4 MG/ML 5 ML MDV ONE ×2 (10:30→10:32)
[2019-08-30] MEDS ORDERED: Ondansetron 4 MG/2 ML SDV ONE (10:30)
[2019-08-30] MEDS ORDERED: ceFAZolin/Dextrose,Iso-Osmotic 2 GM/50 ML Duplex Bag IV ONE (10:35)
--- NOTE | 2019-08-30 11:06 | PCM.PREANE ---
Preanesthetic Assessment - Procedure Proposed Procedure: Laparoscopic Cholecystectomy - Anesthesia/Transfusion/Family Hx Anesthesia History: Prior Anesthesia Without Reaction Other Type of Anesthesia Reaction Comment: PONV. (Hx motion sickness) Transfusion History: No Prior Transfusion(s) - Review of Systems General: No Symptoms Pulmonary: No Symptoms Cardiovascular: No Symptoms Gastrointestinal: Abdominal Pain Neurological: No Symptoms Other: Reports: None - Physical Assessment NPO Status Date: 08/29/19 NPO Status Time: 23:55 Vital Signs: Last Vital Signs Temp 36.7 C 08/30/19 07:20 Pulse 68 08/30/19 07:20 Resp 20 08/30/19 07:20 BP 120/71 08/30/19 07:20 Pulse Ox 96 08/30/19 07:20 Height: 5 ft 6 in Weight: 108.2 kg ASA Class: 2E Mental Status: Alert & Oriented x3 Airway Class: Mallampati = 2 Dentition: Reports: Normal Dentition Thyro-Mental Finger Breadths: 3 Mouth Opening Finger Breadths: 3 ROM/Head Extension: Full Lungs: Clear to Auscultation, Normal Respiratory Effort Cardiovascular: Regular Rate, Regular Rhythm - Lab Values: Laboratory Last Values WBC 11.36 K/uL (4.0-11.0) H 08/30/19 05:58 RBC 4.26 M/uL (4.30-5.90) L 08/30/19 05:58 Hgb 11.2 g/dL (12.0-16.0) L 08/30/19 05:58 Hct 35.4 % (36.0-46.0) L 08/30/19 05:58 MCV 83.1 fL (80.0-98.0) 08/30/19 05:58 MCH 26.3 pg (27.0-32.0) L 08/30/19 05:58 MCHC 31.6 g/dL (31.0-37.0) 08/30/19 05:58 RDW Std Deviation 41.0 fl (28.0-62.0) 08/30/19 05:58 RDW Coeff of Jasmin 14 % (11.0-15.0) 08/30/19 05:58 Plt Count 414 K/uL (150-400) H 08/30/19 05:58 MPV 9.80 fL (7.40-12.00) 08/30/19 05:58 Neut % (Auto) 65.8 % (48.0-80.0) 08/30/19 05:58 Lymph % (Auto) 25.9 % (16.0-40.0) 08/30/19 05:58 [place] % (Auto) 7.1 % (0.0-15.0) 08/30/19 05:58 Eos % (Auto) 1.1 % (0.0-7.0) 08/30/19 05:58 Baso % (Auto) 0.1 % (0.0-1.5) 08/30/19 05:58 Neut # (Auto) 7.5 K/uL (1.4-5.7) H 08/30/19 05:58 Lymph # (Auto) 2.9 K/uL (0.6-2.4) H 08/30/19 05:58 [place] # (Auto) 0.8 K/uL (0.0-0.8) 08/30/19 05:58 Eos # (Auto) 0.1 K/uL (0.0-0.7) 08/30/19 05:58 Baso # (Auto) 0.0 K/uL (0.0-0.1) 08/30/19 05:58 Nucleated RBC % 0.0 /100WBC 08/30/19 05:58 Nucleated RBCs # 0 K/uL 08/30/19 05:58 Sodium 139 mmol/L (136-145) 08/30/19 05:58 Potassium 3.8 mmol/L (3.5-5.1) 08/30/19 05:58 Chloride 104 mmol/L (98-107) 08/30/19 05:58 Carbon Dioxide 25.7 mmol/L (21.0-32.0) 08/30/19 05:58 BUN 7 mg/dL (7.0-18.0) 08/30/19 05:58 Creatinine 0.8 mg/dL (0.6-1.0) 08/30/19 05:58 Est Cr Clr Drug Dosing 98.01 mL/min 08/30/19 05:58 Estimated GFR (MDRD) > 60.0 ml/min 08/30/19 05:58 Glucose 90 mg/dL (74-106) 08/30/19 05:58 Calcium 8.6 mg/dL (8.5-10.1) 08/30/19 05:58 Total Bilirubin 0.6 mg/dL (0.2-1.0) 08/30/19 05:58 AST 15 IU/L (15-37) 08/30/19 05:58 ALT 27 IU/L (14-63) 08/30/19 05:58 Alkaline Phosphatase 80 U/L (46-116) 08/30/19 05:58 Total Protein 6.6 g/dL (6.4-8.2) 08/30/19 05:58 Albumin 3.1 g/dL (3.4-5.0) L 08/30/19 05:58 Globulin 3.5 g/dL (2.6-4.0) 08/30/19 05:58 Albumin/Globulin Ratio 0.9 (0.9-1.6) 08/30/19 05:58 Amylase 79 U/L (25-115) 08/30/19 05:58 Lipase 324 U/L (73-393) 08/30/19 05:58 Urine Color YELLOW 08/29/19 14:45 Urine Appearance CLEAR 08/29/19 14:45 Urine pH 6.5 (5.0-8.0) 08/29/19 14:45 Ur Specific [place] 1.025 (1.001-1.035) 08/29/19 14:45 Urine Protein NEGATIVE mg/dL (NEGATIVE) 08/29/19 14:45 Urine Glucose (UA) NEGATIVE mg/dL (NEGATIVE) 08/29/19 14:45 Urine Ketones NEGATIVE mg/dL (NEGATIVE) 08/29/19 14:45 Urine Occult Blood LARGE (NEGATIVE) H 08/29/19 14:45 Urine Nitrite NEGATIVE (NEGATIVE) 08/29/19 14:45 Urine Bilirubin NEGATIVE (NEGATIVE) 08/29/19 14:45 Urine Urobilinogen 0.2 EU/dL (<2.0) 08/29/19 14:45 Ur Leukocyte Esterase NEGATIVE (NEGATIVE) 08/29/19 14:45 Urine RBC 2-5 (0-2/HPF) 08/29/19 14:45 Urine WBC 0-2 (0-5/HPF) 08/29/19 14:45 Ur Epithelial Cells OCCASIONAL (NONE-FEW) 08/29/19 14:45 Urine Bacteria RARE (NEGATIVE) 08/29/19 14:45 Urine HCG, Qual NEGATIVE (NEGATIVE) 08/29/19 14:45 - Allergies Allergies/Adverse Reactions: Allergies Allergy/AdvReac Type Severity Reaction Status Date / Time No Known Allergies Allergy Verified 08/29/19 19:44 - Acknowledgements Anesthesia Type Planned: General Anesthesia Pt an Appropriate Candidate for the Planned Anesthesia: Yes Alternatives and Risks of Anesthesia Discussed w Pt/Guardian: Yes Pt/Guardian Understands and Agrees with Anesthesia Plan: Yes Additional Comments: Plan General ETT PreAnesthesia Questionnaire HEENT History: Reports: Other (See Below) Other HEENT History: wears glasses/contacts Cardiovascular History: Reports: Other (See Below) Other Cardiovascular History: hypertensive during Respiratory History: Reports: None Gastrointestinal History: Reports: Cholelithiasis, Colon Polyp, Irritable Bowel Syndrome, Other (See Below) Other Gastrointestinal History: occasional heartburn, just found out she has gallstones Genitourinary History: Reports: None [employer] INST[employer]ER [employer]OLLEY History: Reports: Polycystic Ovaries, Other OB/BYN History: 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 Musculoskeletal History: Reports: None Neurological History: Reports: Other (See Below) Other Neuro History: hx of motion sickness Psychiatric History: Reports: Anxiety, Depression Endocrine/Metabolic History: Reports: Obesity/BMI 30+ Hematologic History: Reports: None Immunologic History: Reports: None Oncologic (Cancer) History: Reports: None Dermatologic History: Reports: None - Infectious Disease History Infectious Disease History: Reports: Chicken Pox - Past Surgical History Head Surgeries/Procedures: Reports: None HEENT Surgical History: Reports: Adenoidectomy, Tonsillectomy GI Surgical History: Reports: Colonoscopy Female Surgical History: Reports: Section, Oophorectomy, Tubal Ligation Other Female Surgeries/Procedures: x3, Right Oopherectomy - SUBSTANCE USE Smoking Status *Q: Current Some Day Smoker Tobacco Use Within Last Twelve Months: Cigarettes Second Hand Smoke Exposure: No Number of Drinks Per Day: 6 Recreational Drug Use History: No - HOME MEDS Home Medications: Home Meds buPROPion [Wellbutrin] 150 mg PO QAM 08/21/19 [History] - CURRENT (IN HOUSE) MEDS Current Meds: Current Medications Lactated Ringer's (Ringers, Lactated) 1,000 mls @ 125 mls/hr IV ASDIRECTED MAURILIO Last Admin: 08/30/19 04:17 Dose: 125 mls/hr Levofloxacin/Dextrose 750 mg/ (Premix) 150 mls @ 100 mls/hr IV Q24H [facility] Last Admin: 08/29/19 18:20 Dose: 100 mls/hr Pantoprazole Sodium 40 mg/ (Sodium Chloride) 10 mls @ 300 mls/hr IV DAILY [facility] Last Admin: 08/30/19 08:18 Dose: 300 mls/hr Lactated Ringer's (Ringers, Lactated) 1,000 mls @ 125 mls/hr IV ASDIRECTED [facility] Ketorolac Tromethamine (Toradol) 30 mg IVPUSH Q8H PRN PRN Reason: Pain Stop: 09/03/19 21:09 Last Admin: 08/30/19 05:44 Dose: 30 mg Morphine Sulfate (Morphine) 4 mg IVPUSH Q8H PRN PRN Reason: Pain Last Admin: 08/30/19 02:52 Dose: 4 mg Ondansetron HCl (Zofran) 4 mg IVPUSH Q8H PRN PRN Reason: Nausea/Vomiting Last Admin: 08/29/19 18:51 Dose: 4 mg Sodium Chloride (Saline Flush) 2.5 ml FLUSH ASDIRECTED PRN PRN Reason: Keep Vein Open Last Admin: 08/29/19 15:38 Dose: 2.5 ml Sodium Chloride (Saline Flush) 10 ml FLUSH ASDIRECTED PRN PRN Reason: Keep Vein Open Last Admin: 08/29/19 15:38 Dose: 10 ml Sodium Chloride (Saline Flush) 2.5 ml FLUSH ASDIRECTED PRN PRN Reason: Keep Vein Open Last Admin: 08/29/19 15:38 Dose: 2.5 ml Discontinued Medications Bupivacaine HCl/Epinephrine Bitart (Marcaine 0.25%/Epinephrine 1:200,000) Confirm Administered Dose 10 ml .ROUTE .STK-MED ONE Stop: 08/30/19 09:27 Bupivacaine HCl/Epinephrine Bitart (Marcaine 0.25%/Epinephrine 1:200,000) Confirm Administered Dose 30 ml .ROUTE .STK-MED ONE Stop: 08/30/19 09:39 Cefazolin Sodium/Dextrose (Ancef) Confirm Administered Dose 2 gm IV .STK-MED ONE Stop: 08/30/19 10:36 Dexamethasone (Dexamethasone) Confirm Administered Dose 20 mg .ROUTE .STK-MED ONE Stop: 08/30/19 10:31 Dexamethasone (Dexamethasone) Confirm Administered Dose 20 mg .ROUTE .STK-MED ONE Stop: 08/30/19 10:33 Fentanyl (Sublimaze) Confirm Administered Dose 250 mcg .ROUTE .STK-MED ONE Stop: 08/30/19 09:47 Sodium Chloride (Normal Saline) 1,000 mls @ 999 mls/hr IV BOLUS ONE Stop: 08/29/19 14:44 Last Admin: 08/29/19 13:57 Dose: 999 mls/hr Iopamidol (Isovue-370 (76%)) 100 ml IVPUSH ONETIME STA Stop: 08/29/19 18:22 Last Admin: 08/29/19 18:22 Dose: 100 ml Ketorolac Tromethamine (Toradol) 30 mg IVPUSH ONETIME ONE Stop: 08/29/19 13:45 Last Admin: 08/29/19 13:53 Dose: Not Given Ketorolac Tromethamine (Toradol) 30 mg IVPUSH ONETIME ONE Stop: 08/29/19 15:18 Last Admin: 08/29/19 15:42 Dose: Not Given Lidocaine (Xylocaine-Mpf 2%) Confirm Administered Dose 5 ml .ROUTE .STK-MED ONE Stop: 08/30/19 09:49 Midazolam HCl (Versed 1 Mg/Ml) Confirm Administered Dose 2 mg .ROUTE .STK-MED ONE Stop: 08/30/19 09:47 Morphine Sulfate (Morphine) 4 mg IVPUSH ONETIME ONE Stop: 08/29/19 13:52 Last Admin: 08/29/19 13:57 Dose: 4 mg Morphine Sulfate (Morphine) 4 mg IVPUSH ONETIME ONE Stop: 08/29/19 15:20 Last Admin: 08/29/19 15:27 Dose: 4 mg Morphine Sulfate (Morphine) 4 mg IVPUSH Q6H PRN PRN Reason: Pain Last Admin: 08/29/19 18:53 Dose: 4 mg Octyl Cyanoacrylate (Dermabond Advance) Confirm Administered Dose 1 applic .ROUTE .STK-MED ONE Stop: 08/30/19 09:28 Ondansetron HCl (Zofran) 4 mg IVPUSH ONETIME ONE Stop: 08/29/19 13:45 Last Admin: 08/29/19 13:57 Dose: 4 mg Ondansetron HCl (Zofran) Confirm Administered Dose 4 mg .ROUTE .STK-MED ONE Stop: 08/29/19 18:50 Last Admin: 08/29/19 19:24 Dose: Not Given Ondansetron HCl (Zofran) Confirm Administered Dose 4 mg .ROUTE .STK-MED ONE Stop: 08/30/19 10:31 Propofol (Diprivan 20 Ml) Confirm Administered Dose 400 mg .ROUTE .STK-MED ONE Stop: 08/30/19 09:47 Rocuronium [place] (Zemuron) Confirm Administered Dose 100 mg .ROUTE .STK-MED ONE Stop: 08/30/19 09:49 Scopolamine (Transderm-Scop) Confirm Administered Dose 1.5 mg .ROUTE .STK-MED ONE Stop: 08/30/19 09:32 Last Admin: 08/30/19 09:51 Dose: 1.5 mg
--- NOTE | 2019-08-30 11:42 | CONS ---
DATE OF CONSULTATION: 08/29/2019 DATE OF : 1990 PRIMARY CARE PHYSICIAN: Clementina Connor DO REASON FOR CONSULTATION: This is a consult from Dr. Jaquez in the emergency room. Consulting question is acute cholecystitis. HISTORY OF PRESENT ILLNESS: The patient is a 29 years old lady, obese, BMI of 38.5 and only 5 days from some laparoscopic procedure for ovarian cyst removal, and the patient remarked that she was doing fine on postop day 0, postop day 1, 2, 3, and 4 since she went home. On the day of the ER visit, she developed acute onset of right upper quadrant pain, radiated to back, and also vomiting. Denied fever, chill, or diarrhea. Denied jaundice, denied dark urine, denied white stool, and the patient also having crying spell in the emergency room, and the patient said the pain is 15/10 and very painful. Ultrasound done. CAT scan done. Ultrasound shows some stone, and CAT scan shows layering of gallstones. No wall thickening, and no pericholecystic fluid. White count was noted to be 13. Surgery was consulted for management. PAST MEDICAL HISTORY: Significant for no diabetes, [place], CVA, hypertension. The patient is obese. BMI of 38.5. PAST SURGICAL HISTORY: x3 and laparoscopic cystectomy on the ovary and also tonsil. ALLERGIES: Please refer to nursing for details. MEDICATIONS: Please refer to nursing for details. FAMILY HISTORY: No family history of hypothermia. SOCIAL HISTORY: The patient has occasional smoking. Denies alcohol use. PHYSICAL EXAMINATION: GENERAL: Obviously a very emotional young lady with crying spells. The patient subsequently calmed down after talking to doctor. Very calm, in fact smiled at the end, very nice. HEENT: Normocephalic and atraumatic. Sclerae are anicteric. LUNGS: Clear to auscultation. HEART: Regular rate and rhythm. ABDOMEN: Soft and nondistended. No pulsating tender midline abdominal structure. Well-healed laparoscopic surgical scar. No erythema. No expressed material. Exquisite tenderness of the right upper quadrant, and no rebound tenderness. LABORATORY DATA: White count is 13, H and H are 12 and 38, platelets are 447. Sodium 139, potassium 3.9, BUN 10, creatinine is 0.8. Glucose is 111. Total bilirubin is 0.4. AST and ALT of 20 and 35, otherwise within normal limit. Alkaline phosphatase is 92, lipase is 100. UA with large amount of blood, and the patient remarked that she is having menstruation. Ultrasound reading and CAT scan reading as alluded to before. IMPRESSION: Biliary colic versus acute cholecystitis and recommend the patient be admitted for pain management and IV antibiotic, and we will reassess in the morning to determine whether the patient responds to conservative management. The patient is very appreciative about the plan and agreed to, and we will reassess the situation in the morning. As always, thank you for the kind referral. THIERRY / TAE /[id number]
--- NOTE | 2019-08-30 13:07 | PCM.OPNOTE ---
- General Post-Op/Procedure Note Date of Surgery/Procedure: 08/30/19 Operative Procedure(s): lap leonor Findings: gb was v distended, hyperemic, severely interacting w surrounding organs, and thickened wall with numerous small tiny stones; surgicell and shreyas drain placed. [id number] Pre Op Diagnosis: acute and chronic cholecystitis Post-Op Diagnosis: Same Anesthesia Technique: General ET Tube Primary Surgeon: Daren Flores Pathology: sent Surgical Drain/Tube Type: Nilson Mcmullen Flat Drain Condition: Stable Free Text/Narrative:: Intake & Output 08/29/19 08/30/19 08/30/19 22:59 06:59 14:59 Intake Total 939 Output Total 800 Balance 139
[2019-08-30] MEDS ORDERED: Ondansetron 4 MG/2 ML SDV IVPUSH PRN ×2 (13:08→13:14)
[2019-08-30] MEDS ORDERED: Levofloxacin/Dextrose 5%-Water 750 MG in Premix Bag 1 BAG IV SCH (13:15)
[2019-08-30] MEDS ORDERED: fentaNYL 100 MCG/2 ML SDV ONE (13:16)
[2019-08-30] MEDS: fentaNYL 100 MCG/2 ML SDV IVPUSH PRN ×2 (13:18→13:29)
--- NOTE | 2019-08-30 13:44 | OR ---
SURGEON: Daren Flores MD DATE OF PROCEDURE: 08/30/2019 PREOPERATIVE DIAGNOSIS: Acute on chronic cholecystitis. POSTOPERATIVE DIAGNOSIS: Acute on chronic cholecystitis. PROCEDURE PROPOSED: Laparoscopic cholecystectomy. PROCEDURE PERFORMED: Laparoscopic cholecystectomy. PRIMARY SURGEON: Daren Flores MD COMPLICATIONS: None. FINDINGS: Gallbladder was very distended and hyperemic, is about to turn gangrenous and has thickened wall. Gallbladder was hyperemic and severely interacting with surrounding organ and very distended, required aspiration before surgery could proceed. Thickened wall, about to turn gangrenous. Numerous small tiny gallstones, probably close to about 70 to 100, numerous. PROCEDURE NOTE: The patient was taken to the operating room and placed in the supine position. After the intubation of general endotracheal anesthesia, the patient's abdomen was prepped and draped in the usual sterile fashion. Using [employer], a 12 mm trocar was placed supraumbilically and then followed with pneumoperitoneum. A 5 mm trocar was placed in the epigastrium and two 5 mm trocars placed in the right upper quadrant. The placement of the last three trocars was done under direct video supervision. Upon gaining entrance to the abdominal cavity, an extensive examination was then performed. The gallbladder was located and identified and retracted to the dome of the liver at the triangle of Calot. The cystic duct was clipped three more times and then using the endoscopic clip, was transected with placement of the endoscopic clip and transection was performed with care, ensuring the posterior prong of the instruments were clearly visualized prior to exercising the procedure. The gallbladder was dissected using electrocautery out of the liver bed and then removed using endoscopic bag through the umbilical site. The gallbladder was removed en bloc and there was no bile spillage and this was then followed with extensive irrigation until the bile was clear from blood and bile. The trocars were then removed under direct video supervision. The 12 mm umbilical site was then closed with deep stitches using 0 Vicryl followed with proximal stitches using 3-0 Vicryl and Dermabond. The other three trocar sites were closed with 3-0 Vicryl followed with approximation of skin with Dermabond. The patient was then awakened and extubated and transferred to the recovery room in hemodynamically stable condition. At the conclusion of the surgery, before closing the abdominal wound, instrument count and sponge count were done and were correct. The patient tolerated the procedure well and there were no intraoperative complications. Dr. Flores was present through the whole procedure. Just before surgery, a timeout was called. The patient was identified and procedure identified and procedure started. Intraoperative finding as dictated above. The patient's gallbladder was challenging for several reasons: 1. She is obese, BMI of 38.5. 2. The gallbladder was thickened wall and at the end of surgery, Surgicel, a piece, was inserted for hemostasis. A KIT drain, flat, 10, was inserted to monitor progress. The skin was approximated by use of skin savi because of prior surgery. THIERRY / TAE /[id number]
--- NOTE | 2019-08-30 13:44 | PCM.POSTAN ---
POST ANESTHESIA ASSESSMENT - MENTAL STATUS Mental Status: Alert, Oriented - VITAL SIGNS Vital Signs: Last Vital Signs Temp 36.4 C 08/30/19 12:56 Pulse 52 L 08/30/19 13:29 Resp 10 L 08/30/19 13:29 BP 110/65 08/30/19 13:29 Pulse Ox 97 08/30/19 13:29 - RESPIRATORY Respiratory Status: Respiratory Rate WNL, Airway Patent, O2 Saturation Stable - CARDIOVASCULAR CV Status: Pulse Rate WNL, Blood Pressure Stable - GASTROINTESTINAL GI Status: No Symptoms - PAIN Pain Score: 5 (Patient states pain is acceptable. Resting comfortably now.) - POST OP HYDRATION Hydration Status: Adequate & Stable - OBSERVATIONS Free Text/Narrative:: No anesthesia complications or concerns noted.
[2019-08-30] MEDS: Levofloxacin/Dextrose 5%-Water 750 MG in Premix Bag 1 BAG IV SCH (17:20)
[2019-08-30] MEDS: Morphine 4 MG/ML Syringe IVPUSH PRN (19:44)
[2019-08-31] MEDS: Morphine 4 MG/ML Syringe IVPUSH PRN (01:46)
[2019-08-31] MEDS: Lactated Ringers 1,000 ML IV SCH (03:05)
[2019-08-31] MEDS: Ketorolac 30 MG/ML SDV IVPUSH PRN (06:33)
[2019-08-31] MEDS: Pantoprazole 40 MG in Sodium Chloride 0.9% 10 ML IV SCH (09:48)
[2019-08-31] MEDS ORDERED: Acetaminophen/oxyCODONE 325-5 MG Tab PO PRN ×2 (10:06→10:08)
--- NOTE | 2019-08-31 10:38 | PCM48HPAN ---
Post Anesthesia Note - EVALUATION WITHIN 48HRS OF ANESTHETIC Vital Signs in Normal Range: Yes Patient Participated in Evaluation: Yes Respiratory Function Stable: Yes Airway Patent: Yes Cardiovascular Function Stable: Yes Hydration Status Stable: Yes Pain Control Satisfactory: No Nausea and Vomiting Control Satisfactory: Yes Mental Status Recovered: Yes Vital Signs: Last Vital Signs Temp 37.0 C 08/31/19 09:46 Pulse 61 08/31/19 09:46 Resp 16 08/31/19 09:46 BP 98/55 L 08/31/19 09:46 Pulse Ox 94 L 08/31/19 09:46 - COMMENTS/OBSERVATIONS Free Text/Narrative:: Patient lying in bed. She states she is having a fair amount of pain when up moving around. Surgeon has not rounded yet this morning. Medications reviewed and patient has been receiving IV Toradol and IV Morphine for pain control. Ordered Percocet to assist with pain control and wean off Morphine. Patient has no complaints or concerns related to anesthesia. She denies any nausea and vomiting with this procedure. No anesthesia complications noted.
--- NOTE | 2019-08-31 12:26 | PCM.DCSUM1 ---
Discharge Summary - Hospital Course Free Text/Narrative:: Pls refer to admitting h/p for details; in summary, pt presented to ED for severe abd pain; US/CT > gallstones, no sign or symptoms of cholecystitis; pt was admitted for iv abx and pain managment Diagnosis: Stroke: No - Discharge Data Discharge Date: 08/31/19 Discharge Disposition: Home, Self-Care 01 Condition: Stable - Referral to Home Health Primary Care Physician: Clementina Connor DO - Patient Summary/Data Operative Procedure(s) Performed: [facility] Hospital Course: overnight, pt required pain meds every 4 hrs and co pain was 10 out of 10; wbc elevated w iv abx; pt was taken to surgery, noted for acute and chronic cholecystitis; shreyas drain placed intraop; the next morning, previous pain resolved , but pt co of a different pain; ekg was normal sinus; avss; shreyas 85 ml serosanguinous; wound cdi; home on percocet after review lab works; will dc drain in office coming - Patient Instructions Diet, Other: low fat diet X 3 wks Activity: No Lifting Over 10 Pounds, No Strenuous Activities Driving: Do Not Drive Showering/Bathing: May Shower in 3 Days Wound/Incision Care: Keep Operative Site/Wound Site Clean and Dry Notify Provider of: Fever, Drainage, Nausea and/or Vomiting - Discharge Plan *PRESCRIPTION DRUG MONITORING PROGRAM REVIEWED*: Not Applicable *COPY OF PRESCRIPTION DRUG MONITORING REPORT IN PATIENT NIURKA: Not Applicable Home Medications: Home Meds buPROPion [Wellbutrin] 150 mg PO QAM 08/21/19 [History] Patient Handouts: Laparoscopic Cholecystectomy, Care After, Cholelithiasis, [id number] Referrals: Daren Flores MD [Physician] - Clementina Connor DO [Primary Care Provider] - - Discharge Summary/Plan Comment DC Time >30 min.: Yes - General Info Date of Service: 08/31/19 - Review of Systems General: Reports: No Symptoms Gastrointestinal: Reports: No Symptoms - Patient Data Vitals - Most Recent: Last Vital Signs Temp 98.6 F 08/31/19 09:46 Pulse 61 08/31/19 09:46 Resp 16 08/31/19 09:46 BP 98/55 L 05/10/20 09:46 Pulse Ox 94 L 08/31/19 09:46 Weight - Most Recent: 238 lb 8.642 oz I&O - Last 24 hours: Intake & Output 08/30/19 08/31/19 08/31/19 22:59 06:59 14:59 Intake Total 1160 2584 Output Total 1275 1610 Balance -115 974 Med Orders - Current: Current Medications Lactated Ringer's (Ringers, Lactated) 1,000 mls @ 125 mls/hr IV ASDIRECTED [facility] Last Admin: 08/31/19 03:05 Dose: 125 mls/hr Levofloxacin/Dextrose 750 mg/ (Premix) 150 mls @ 100 mls/hr IV Q24H [facility] Last Admin: 08/30/19 17:20 Dose: 100 mls/hr Pantoprazole Sodium 40 mg/ (Sodium Chloride) 10 mls @ 300 mls/hr IV DAILY [facility] Last Admin: 08/31/19 09:48 Dose: 300 mls/hr Ketorolac Tromethamine (Toradol) 30 mg IVPUSH Q8H PRN PRN Reason: Pain Stop: 09/03/19 21:09 Last Admin: 08/31/19 06:33 Dose: 30 mg Morphine Sulfate (Morphine) 4 mg IVPUSH Q6H PRN PRN Reason: Pain Last Admin: 08/31/19 01:46 Dose: 4 mg Ondansetron HCl (Zofran) 4 mg IVPUSH Q8H PRN PRN Reason: Nausea/Vomiting Oxycodone/Acetaminophen (Percocet 325-5 Mg) 2 tab PO Q6H PRN PRN Reason: Pain (severe 7-10) Last Admin: 08/31/19 10:28 Dose: 2 tab Sodium Chloride (Saline Flush) 2.5 ml FLUSH ASDIRECTED PRN PRN Reason: Keep Vein Open Last Admin: 08/29/19 15:38 Dose: 2.5 ml Sodium Chloride (Saline Flush) 10 ml FLUSH ASDIRECTED PRN PRN Reason: Keep Vein Open Last Admin: 08/29/19 15:38 Dose: 10 ml Discontinued Medications Bupivacaine HCl/Epinephrine Bitart (Marcaine 0.25%/Epinephrine 1:200,000) Confirm Administered Dose 10 ml .ROUTE .STK-MED ONE Stop: 08/30/19 09:27 Bupivacaine HCl/Epinephrine Bitart (Marcaine 0.25%/Epinephrine 1:200,000) Confirm Administered Dose 30 ml .ROUTE .STK-MED ONE Stop: 08/30/19 09:39 Bupivacaine HCl/Epinephrine Bitart (Marcaine 0.25%/Epinephrine 1:200,000) Confirm Administered Dose 10 ml .ROUTE .STK-MED ONE Stop: 08/30/19 12:42 Cefazolin Sodium/Dextrose (Ancef) Confirm Administered Dose 2 gm IV .STK-MED ONE Stop: 08/30/19 10:36 Dexamethasone (Dexamethasone) Confirm Administered Dose 20 mg .ROUTE .STK-MED ONE Stop: 08/30/19 10:31 Dexamethasone (Dexamethasone) Confirm Administered Dose 20 mg .ROUTE .STK-MED ONE Stop: 08/30/19 10:33 Fentanyl (Sublimaze) Confirm Administered Dose 250 mcg .ROUTE .STK-MED ONE Stop: 08/30/19 09:47 Fentanyl (Sublimaze) 50 - 100 mcg IVPUSH Q5M PRN PRN Reason: Pain Stop: 08/30/19 15:00 Last Admin: 08/30/19 13:29 Dose: 50 mcg Fentanyl (Sublimaze) Confirm Administered Dose 100 mcg .ROUTE .STK-MED ONE Stop: 08/30/19 13:17 Last Admin: 08/31/19 09:37 Dose: Not Given Sodium Chloride (Normal Saline) 1,000 mls @ 999 mls/hr IV BOLUS ONE Stop: 08/29/19 14:44 Last Admin: 08/29/19 13:57 Dose: 999 mls/hr Lactated Ringer's (Ringers, Lactated) 1,000 mls @ 125 mls/hr IV ASDIRECTED [facility] Iopamidol (Isovue-370 (76%)) 100 ml IVPUSH ONETIME STA Stop: 08/29/19 18:22 Last Admin: 08/29/19 18:22 Dose: 100 ml Ketorolac Tromethamine (Toradol) 30 mg IVPUSH ONETIME ONE Stop: 08/29/19 13:45 Last Admin: 08/29/19 13:53 Dose: Not Given Ketorolac Tromethamine (Toradol) 30 mg IVPUSH ONETIME ONE Stop: 08/29/19 15:18 Last Admin: 08/29/19 15:42 Dose: Not Given Lidocaine (Xylocaine-Mpf 2%) Confirm Administered Dose 5 ml .ROUTE .STK-MED ONE Stop: 08/30/19 09:49 Midazolam HCl (Versed 1 Mg/Ml) Confirm Administered Dose 2 mg .ROUTE .STK-MED ONE Stop: 08/30/19 09:47 Morphine Sulfate (Morphine) 4 mg IVPUSH ONETIME ONE Stop: 08/29/19 13:52 Last Admin: 08/29/19 13:57 Dose: 4 mg Morphine Sulfate (Morphine) 4 mg IVPUSH ONETIME ONE Stop: 08/29/19 15:20 Last Admin: 08/29/19 15:27 Dose: 4 mg Morphine Sulfate (Morphine) 4 mg IVPUSH Q6H PRN PRN Reason: Pain Last Admin: 08/29/19 18:53 Dose: 4 mg Morphine Sulfate (Morphine) 4 mg IVPUSH Q8H PRN PRN Reason: Pain Last Admin: 08/30/19 02:52 Dose: 4 mg Octyl Cyanoacrylate (Dermabond Advance) Confirm Administered Dose 1 applic .ROUTE .STK-MED ONE Stop: 08/30/19 09:28 Ondansetron HCl (Zofran) 4 mg IVPUSH ONETIME ONE Stop: 08/29/19 13:45 Last Admin: 08/29/19 13:57 Dose: 4 mg Ondansetron HCl (Zofran) 4 mg IVPUSH Q8H PRN PRN Reason: Nausea/Vomiting Last Admin: 08/29/19 18:51 Dose: 4 mg Ondansetron HCl (Zofran) Confirm Administered Dose 4 mg .ROUTE .STK-MED ONE Stop: 08/29/19 18:50 Last Admin: 08/29/19 19:24 Dose: Not Given Ondansetron HCl (Zofran) Confirm Administered Dose 4 mg .ROUTE .STK-MED ONE Stop: 08/30/19 10:31 Oxycodone/Acetaminophen (Percocet 325-5 Mg) 1 tab PO Q6H PRN PRN Reason: Pain Propofol (Diprivan 20 Ml) Confirm Administered Dose 400 mg .ROUTE .STK-MED ONE Stop: 08/30/19 09:47 Propofol (Diprivan 20 Ml) Confirm Administered Dose 200 mg .ROUTE .STK-MED ONE Stop: 08/30/19 11:56 Rocuronium Fleming (Zemuron) Confirm Administered Dose 100 mg .ROUTE .STK-MED ONE Stop: 08/30/19 09:49 Scopolamine (Transderm-Scop) Confirm Administered Dose 1.5 mg .ROUTE .STK-MED ONE Stop: 08/30/19 09:32 Last Admin: 08/30/19 09:51 Dose: 1.5 mg Sodium Chloride (Saline Flush) 2.5 ml FLUSH ASDIRECTED PRN PRN Reason: Keep Vein Open Last Admin: 08/29/19 15:38 Dose: 2.5 ml - Exam Lungs: Reports: Clear to Auscultation GI/Abdominal Exam: Soft, No Distention (wound cdi)
[2019-08-31 12:40] LABS: BLOOD UREA NITROGEN,BUN 9 mg/dL (7.0-18.0); CARBON DIOXIDE,CO2 25.7 mmol/L (21.0-32.0); CHLORIDE,CL 104 mmol/L (98-107); GLUCOSE RANDOM 89 mg/dL (74-106); POTASSIUM,K 3.6 mmol/L (3.5-5.1); SODIUM,NA 138 mmol/L (136-145)
[2019-08-31 18:34] VITALS: BP 120/57; PULSE 92
== END 2019-08-31 15:05 | disposition home or self-care (01) ==
LOC: MW.ED 13:32 → MW.MS 18:01
PROVIDERS: ADMIT Surgery; ATTEND Surgery
DX: K80.12 Calculus of gallbladder with acute and chronic cholecystitis without obstruction (principal); F41.9 Anxiety disorder, unspecified; F32.9 Major depressive disorder, single episode, unspecified; E66.9 Obesity, unspecified; F17.210 Nicotine dependence, cigarettes, uncomplicated; Z68.38 Body mass index [BMI] 38.0-38.9, adult
CPT/HCPCS: 00790; 36415; 74177; 74177-26; 76705; 76705-26; 80053; 81001; 81025; 82150; 83690; 84484; 85025; 87070; 87075; 87205; 93005; 96361; 96365; 96366; 96375; 96376; 99284; 99285-25; A9270-GY; C9113; G0378; J0690; J1100; J1885; J1956; J2001; J2250; J2270; J2405; J2704; J3010; J3490; J7030; J7050; J7120; Q9967

== ENCOUNTER 2019-09-04 14:09 | Observation (INO) | payer OTHER ==
[2019-09-04 14:35] VITALS: BP 126/83; PULSE 120
[2019-09-04] MEDS ORDERED: Lactated Ringers 1,000 ML IV SCH (15:00)
[2019-09-04] MEDS ORDERED: Acetaminophen/oxyCODONE 325-5 MG Tab PO PRN (15:01)
--- NOTE | 2019-09-04 15:02 | PCM.DCSUM1 ---
Discharge Summary - Hospital Course Free Text/Narrative:: pt seen in office for abd pain. Brief History: pls refer to admission h/p for details; in summary, pt was admitted 5 days ago for abd pain; workup showed acute cholecystitis; pt was taken by me to surgery s/p lap leonor. postop pt doing well was discharged home the next day Diagnosis: Stroke: No - Discharge Data Discharge Date: 09/04/19 Discharge Disposition: DC/Tfer to Acute Hospital 02 Condition: Good - Patient Summary/Data Hospital Course: pt was admitted for increased shreyas drainage; repeat blood work done and had hida scan; hida revealed bile leak; pt was getting 1 dose of iv levaquin and transferred to Dr. Wilson at [facility] for ERCP - Patient Instructions Diet: NPO - Discharge Plan Home Medications: Home Meds buPROPion [Wellbutrin] 150 mg PO PCDINNER 08/21/19 [History] - Discharge Summary/Plan Comment DC Time >30 min.: Yes - Patient Data Lab Results - Last 24 hrs: Laboratory Results - last 24 hr 09/04/19 09/04/19 Range/Units 12:36 12:36 WBC 14.88 H (4.0-11.0) K/uL RBC 4.78 (4.30-5.90) M/uL Hgb 12.7 (12.0-16.0) g/dL Hct 40.0 (36.0-46.0) % MCV 83.7 (80.0-98.0) fL MCH 26.6 L (27.0-32.0) pg MCHC 31.8 (31.0-37.0) g/dL RDW Std Deviation 41.9 (28.0-62.0) fl RDW Coeff of Jasmin 14 (11.0-15.0) % Plt Count 527 H (150-400) K/uL MPV 9.80 (7.40-12.00) fL Neut % (Auto) 81.8 H (48.0-80.0) % Lymph % (Auto) 10.0 L (16.0-40.0) % [place] % (Auto) 6.1 (0.0-15.0) % Eos % (Auto) 1.9 (0.0-7.0) % Baso % (Auto) 0.2 (0.0-1.5) % Neut # (Auto) 12.2 H (1.4-5.7) K/uL Lymph # (Auto) 1.5 (0.6-2.4) K/uL [place] # (Auto) 0.9 H (0.0-0.8) K/uL Eos # (Auto) 0.3 (0.0-0.7) K/uL Baso # (Auto) 0.0 (0.0-0.1) K/uL Nucleated RBC % 0.0 /100WBC Nucleated RBCs # 0 K/uL Sodium 137 (136-145) mmol/L Potassium 3.8 (3.5-5.1) mmol/L Chloride 101 (98-107) mmol/L Carbon Dioxide 24.6 (21.0-32.0) mmol/L BUN 6 L (7.0-18.0) mg/dL Creatinine 0.6 (0.6-1.0) mg/dL Est Cr Clr Drug Dosing TNP Estimated GFR (MDRD) > 60.0 ml/min Glucose 102 (74-106) mg/dL Calcium 9.4 (8.5-10.1) mg/dL Total Bilirubin 1.9 H (0.2-1.0) mg/dL AST 32 (15-37) IU/L ALT 170 H (14-63) IU/L Alkaline Phosphatase 234 H (46-116) U/L Total Protein 7.5 (6.4-8.2) g/dL Albumin 3.2 L (3.4-5.0) g/dL Globulin 4.3 H (2.6-4.0) g/dL Albumin/Globulin Ratio 0.7 L (0.9-1.6) Amylase 87 (25-115) U/L Lipase 389 (73-393) U/L Med Orders - Current: Current Medications Levofloxacin/Dextrose 750 mg/ (Premix) 150 mls @ 100 mls/hr IV Q24H [facility] Oxycodone/Acetaminophen (Percocet 325-5 Mg) 1 tab PO Q6H PRN PRN Reason: Pain - Exam Neck: Reports: Supple Lungs: Reports: Clear to Auscultation GI/Abdominal Exam: Soft, No Distention
[2019-09-04] MEDS ORDERED: Morphine 2 MG/ML Syringe IVPUSH ONE (15:05)
[2019-09-04] MEDS ORDERED: HYDROmorphone 2 MG/ML Syringe IVPUSH ONE (15:08)
[2019-09-04] MEDS ORDERED: Levofloxacin/Dextrose 5%-Water 750 MG in Premix Bag 1 BAG IV SCH (15:15)
--- NOTE | 2019-09-04 17:09 | HP ---
DATE OF : 1990 HISTORY OF PRESENT ILLNESS: The patient is a 29-year-old lady and postop day 4 from a laparoscopic cholecystectomy for acute cholecystitis. Postop, the patient was doing fine and discharged home the next day. Today seen in office, the patient complained of drainage increased and also yellow in color. The patient was admitted to the hospital and workup included HIDA scan and blood work. HIDA scan shows a bile leak. The patient is consulted for ERCP in [place], and the patient is on the way to transfer to [place]. Currently, the patient is complaining about abdominal pain. PAST MEDICAL HISTORY: Significant for no diabetes, [place], CVA, hypertension. The patient is obese, BMI of 38. PAST SURGICAL HISTORY: x3 and laparoscopic cystectomy due to ulcer on the ovary and also tonsils and adenoids. ALLERGIES: Please refer to nursing for details. HOME MEDICATIONS: Please refer to nursing for details. PHYSICAL EXAMINATION: VITAL SIGNS: Slightly changed, right now is 99 pulse, blood pressure 126/83. GENERAL: A very nice, pleasant lady, sitting on wheelchair, in no acute distress. HEENT: Normocephalic and atraumatic. Sclerae anicteric. LUNGS: Clear to auscultation. HEART: Regular rate and rhythm. ABDOMEN: Soft, nondistended. KIT drainage dressing has a little bit minimal drainage with yellow color. LABORATORY DATA: Laboratory value will come back. White count is 14.88 and H and H are 12.7 and 40. TBili is 1.9. AST and ALT of 32 and 170, alkaline phosphatase is 234, mildly elevated. IMPRESSION: HIDA scan shows bile leak and has a leukocytosis of 14.88. The patient is getting one dose of Levaquin and will get troponin workup with 12-lead EKG and get pain management. The patient is on the way to transfer to [facility] to for endoscopic retrograde cholangiopancreatography. All has been explained to the patient. The patient concurred with the plan. The patient will go by ground ambulance. The troponin result negative on 08/30 troponin. Today, we are still waiting for the blood work. We will do the addendum after the results come back. THIERRY / TAE /[id number] GEORGE
== END 2019-09-04 17:37 ==
LOC: MW.MS 14:09
PROVIDERS: ADMIT Surgery; ATTEND Surgery
DX: K91.89 Other postprocedural complications and disorders of digestive system (principal); E66.9 Obesity, unspecified; D72.829 Elevated white blood cell count, unspecified; Z68.38 Body mass index [BMI] 38.0-38.9, adult; Z98.890 Other specified postprocedural states; Y83.8 Other surgical procedures as the cause of abnormal reaction of the patient, or of later complication, without mention of misadventure at the time of the procedure
CPT/HCPCS: 36415; 84484; 93005; J1170; J1956